=== PATIENT | male | born 1995 | race Caucasian/White ===

== ENCOUNTER → 2025-03-21 | Outpatient (CLI) | payer SELFPAY ==
--- NOTE | 2025-03-21 10:44 | VDLE_ITS ---
Reason For Study Reason For Study: SVT VS PHLEBITIS/VARICOSITIES RIGHT LEFT CFV is compressible, spontaneous, phasic, competent GSV is normal. and demonstrates normal augmentation. CFV is compressible, spontaneous, phasic, competent, Procedure and demonstrates normal augmentation. This is a venous duplex using B-mode, color flow and FV is compressible, spontaneous, phasic, competent spectral Doppler. and demonstrates normal augmentation. Exam performed in department. POP V is compressible, spontaneous, phasic, competent A preliminary report was called and/or faxed to and demonstrates normal augmentation. Malena Chun INVESTMENT REPRESENTATIVE-C @ [phone]. T/P Trunk is compressible. PT is male, will call medical records to correct. PTV is compressible. LT PerV is compressible. Multiple occluded varicose veins noted in the medial calf area (from ankle to knee). VL/Venous Duplex US, Unilateral Interpretation Summary Acute superficial vein thrombosis noted in left calf varicosities. Deep veins of the left lower extremity are patent and compressible segmentally. There is no evidence of left lower extremity deep vein thrombosis. The left great saphenous vein appears patent an d compressible segmentally. Ordering Physician: Malena Chun Referring Physician: Malena Chun Performed By: Elaine Lawrence RDCS, RVT
== END | disposition home or self-care (01) ==
PROVIDERS: PCP Nurse Practitioner Family; Referring Provider Nurse Practitioner Family; Visit Provider Nurse Practitioner Family
DX: I83.812 Varicose veins of left lower extremity with pain (principal)
CPT/HCPCS: 93971